=== PATIENT | female | born 1965 | race Caucasian/White ===

== ENCOUNTER 2016-12-20 19:43 | Emergency (ER) | payer MEDICAID ==
[2016-12-20 20:25] LABS: BASO % 0.4 % (0-6); EOS % 1.7 % (0-6); GRAN % 52.7 % (47-80); HEMATOCRIT 38.1 % (35.0-47.0); HEMOGLOBIN 12.5 gm/dl (11.6-16.0); LYMPH % 38.1 % (16-45); MEAN CELL VOLUME 96.5 fl (81-97); MEAN CORPUSCULAR HEMOGLOBIN 31.6 pg (27-33); MEAN CORPUSCULAR HGB CONC 32.8 g/dl (32-36); MEAN PLATELET VOLUME 10.2 fl (7.4-10.4); MONO % 7.1 % (0-9); PLATELET COUNT 261 K/uL (130-400); RED BLOOD COUNT 3.95 M/uL (3.80-5.40); RED CELL DISTRIBUTION WIDTH 11.5 % (11.5-14.5); WHITE BLOOD COUNT W/O DIFF 7.6 K/uL (4.2-12.2)
[2016-12-20 20:34] LABS: URINE APPEARANCE CLEAR; URINE BILIRUBIN NEGATIVE (NEGATIVE); URINE BLOOD MODERATE (NEGATIVE); URINE COLOR YELLOW; URINE GLUCOSE (UA) NEGATIVE (NEGATIVE); URINE KETONE NEGATIVE (NEGATIVE); URINE LEUKOCYTE ESTERASE TRACE (NEGATIVE); URINE NITRITE POSITIVE (NEGATIVE); URINE PROTEIN NEGATIVE (NEGATIVE); URINE UROBILINOGEN 0.2 E.U./dL (0.20 - 1.00)
[2016-12-20 20:38] LABS: ALB/GLOB RATIO 1.2 (1.1-1.8); ALBUMIN 4.2 gm/dL (3.5-5.0); ALKALINE PHOSPHATASE 108 U/L (38-126); ALT/SGPT 26 U/L (9-52); ANION GAP 4.8 (7-16); AST/SGOT 24 U/L (14-36); BILIRUBIN,TOTAL 0.52 mg/dL (0.2-1.3); BLOOD UREA NITROGEN 17 mg/dL (7-17); CARBON DIOXIDE 28.2 mmol/L (22-30); CREATININE 0.8 mg/dL (0.52-1.04); EST GLOMERULAR FILTRATION RATE > 60 ml/min; GLUCOSE,RANDOM 119 mg/dL (70-110); TOTAL PROTEIN 7.6 gm/dL (6.3-8.2)
[2016-12-20 20:45] LABS: URINE EPITHELIAL CELLS 0 - 2 (FEW)
--- NOTE | 2016-12-20 20:45 | Emergency Department Record ---
History of Present Illness - General Chief complaint: General Stated complaint: PAIN WHILE URINATING,HEADACHE TIRED,SORE ABDOMAN Time Seen by Provider: 12/20/16 20:12 Source: Patient Mode of Arrival: Ambulatory Limitations: No limitations - History of Present Illness Initial comments: pt c/o of not feeling well, tired, headache. she is a poor historian. she states that this is how she feels when she has a kidney infection and that she gets them often. she also has hx of PTSD MD Complaint: Dysuria -: Days(s) Consistency: Getting worse Worsens with: Urination Patient : No Associated Symptoms: Headaches, Nausea/vomiting, Weakness - Related Data Previous Rx's Medication Instructions Recorded Cephalexin [Keflex] 500 mg PO BID #14 cap 12/20/16 Allergies Allergy/AdvReac Type Severity Reaction Status Date / Time No Known Drug Allergies Allergy Verified 12/20/16 19:58 Travel Screening - Travel/Exposure Within Last 30 Days Have you traveled within the last 30 days?: No - Travel/Exposure Within Last Year Have you traveled outside the [place] in the last year?: No - Additonal Travel Details Have you been exposed to anyone with a communicable illness?: No - Travel Symptoms Symptom Screening: None Review of Systems Reviewed: No additional complaints except as noted below Constitutional: Reports: As per HPI. Denies: Chills, Fever, Malaise, Night sweats, Weakness, Weight change Eyes: Reports: As per HPI. Denies: Eye discharge, Eye pain, Photophobia, Vision change ENT: Reports: As per HPI. Denies: Congestion, Dental pain, Ear pain, Epistaxis , Hearing loss, Throat pain Respiratory: Reports: As per HPI. Denies: Cough, Dyspnea, Hemoptysis, Stridor, Wheezes Cardiovascular: Reports: As per HPI. Denies: Arrhythmia, Chest pain, Dyspnea on exertion, Edema, Murmurs, Orthopnea, Palpitations, Paroxysmal nocturnal dyspnea, Rheumatic Fever, Syncope Endocrine: Reports: As per HPI. Denies: Fatigue, Heat or cold intolerance, Polydipsia, Polyuria Gastrointestinal: Reports: As per HPI. Denies: Abdominal pain, Constipation, Diarrhea, Hematemesis, Hematochezia, Melena, Nausea, Vomiting Genitourinary: Reports: As per HPI. Denies: Abnormal menses, Discharge, Dyspareunia, Dysuria, Frequency, Hematuria, Incontinence, Retention, Urgency Musculoskeletal: Reports: As per HPI. Denies: Arthralgia, Back pain, Gout, Joint swelling, Myalgia, Neck pain Skin: Reports: As per HPI. Denies: Bruising, Change in color, Change in hair/ nails, Lesions, Pruritus, Rash Neurological: Reports: As per HPI. Denies: Abnormal gait, Confusion, Headache, Numbness, Paresthesias, Seizure, Tingling, Tremors, Vertigo, Weakness Psychiatric: Reports: As per HPI. Denies: Anxiety, Auditory hallucinations, Depression, Homicidal thoughts, Suicidal thoughts, Visual hallucinations Hematological/Lymphatic: Reports: As per HPI. Denies: Anemia, Blood Clots, Easy bleeding, Easy bruising, Swollen glands Past Medical History - SOCIAL HISTORY Smoking Status: Former smoker Alcohol Use: Rare Drug Use: Heavy Drug Use Detail:: Marijuana - RESPIRATORY Hx Respiratory Disorders: No - CARDIOVASCULAR Hx Cardio Disorders: No - NEURO Hx Neuro Disorders: No - GI Hx GI Disorders: No - Hx Genitourinary Disorders: Yes Hx UTI: Yes - ENDOCRINE Hx Endocrine Disorders: No - MUSCULOSKELETAL Hx Musculoskeletal Disorders: No - PSYCH Hx Psych Problems: Yes Hx Depression: Yes (PTSD) - HEMATOLOGY/ONCOLOGY Hx Hematology/Oncology Disorders: No Family Medical History Any Significant Family History?: Yes Family Hx Comment (NOT TO BE USED IN PLACE OF ITEMS BELOW): Prion's disease Hx Cancer: Mother Physical Exam - General General Appearance: Alert, Oriented x3, Cooperative, Mild distress - Head Head exam: Normal inspection - Eye Eye exam: Normal appearance, PERRL, EOMI Pupils: Normal accommodation - ENT ENT exam: Normal exam, Mucous membranes moist, Normal external ear exam, Normal orophraynx Ear exam: Normal external inspection. negative: External canal tenderness Nasal Exam: Normal inspection. negative: Discharge, Sinus tenderness Mouth exam: Normal external inspection, Tongue normal Teeth exam: Normal inspection. negative: Dental caries Throat exam: Normal inspection. negative: Tonsillar erythema, Tonsillar exudate - Neck Neck exam: Normal inspection, Full ROM. negative: Tenderness - Respiratory Respiratory exam: Normal lung sounds bilaterally. negative: Respiratory distress - Cardiovascular Cardiovascular Exam: Regular rate, Normal rhythm, Normal heart sounds - GI/Abdominal GI/Abdominal exam: Soft, Normal bowel sounds. negative: Tenderness - Rectal Rectal exam: Deferred - exam: Deferred - Extremities Extremities exam: Normal inspection, Full ROM, Normal capillary refill. negative: Tenderness - Back Back exam: Reports: Normal inspection, Full ROM. Denies: Muscle spasm, Rash noted, Tenderness - Neurological Neurological exam: Alert, CN II-XII intact, Normal gait, Oriented X3 - Psychiatric Psychiatric exam: Normal affect, Normal mood - Skin Skin exam: Dry, Intact, Normal color, Warm Course Vital Signs 12/20/16 19:50 Temperature 97.9 F Pulse Rate 73 Respiratory 20 Rate Blood Pressure 127/90 Pulse Ox 98 Medical Decision Making - Data Complexity MDM Data: Labs Ordered and/or Reviewed - Lab Data Result diagrams: 12/20/16 19:57 12/20/16 19:57 Disposition Disposition: Discharge Clinical Impression: UTI (urinary tract infection) Qualifiers: Urinary tract infection type: acute cystitis Hematuria presence: with hematuria Qualified Code(s): N30.01 - Acute cystitis with hematuria Disposition: Home, Self-Care Condition: (1) Good Instructions: Urinary Tract Infection in Women (ED) Additional Instructions: follow up with family doctor. return sooner if worse. have blood in urine evaluated further Prescriptions: Cephalexin [Keflex] 500 mg PO BID #14 cap Forms: Patient Portal Access
[2016-12-20 20:46] LABS: URINE AMORPHOUS SEDIMENT 4+; URINE BACTERIA 4+
[2016-12-20] MEDS ORDERED: TMP/SMZ 160MG/800MG TAB PO ONE (21:00)
[2016-12-20 21:02] LABS: ERYTHROCYTE SEDIMENTATION RATE 23 mm/hr (0-30)
[2016-12-20] MEDS ORDERED: CEPHALEXIN 500 MG CAPSULE PO STA (21:03)
== END 2016-12-20 21:13 | disposition home or self-care (01) ==
LOC: ER 19:43
DX: N30.01 Acute cystitis with hematuria (principal); R51 Headache; R11.2 Nausea with vomiting, unspecified; R30.0 Dysuria
CPT/HCPCS: 80053; 81001; 85025; 85651; 99283

== ENCOUNTER 2017-05-07 10:16 | Day surgery (SDC) | payer MEDICAID ==
[2017-05-07] MEDS ORDERED: MIDAZOLAM HCL 2MG/2ML VIAL IV ONE (14:00)
[2017-05-07] MEDS ORDERED: PROPOFOL 10 MG/ML VIAL IV ONE (14:00)
[2017-05-07] MEDS ORDERED: LIDOCAINE 2% MDV (20MG/ML) 20ML VIAL IV ONE (14:00)
--- NOTE | 2017-05-08 12:50 | Operative Note ---
DATE OF SURGERY: 05/07/2017 OPERATION: COLONOSCOPY with cold and hot snare polypectomies. PREOPERATIVE DIAGNOSIS: Screening, initial. POSTOPERATIVE DIAGNOSIS: Colon polyp. ESTIMATED BLOOD LOSS: Minimal. COMPLICATIONS: None apparent. PREPARATION QUALITY: Good. PROCEDURE: After informed consent was obtained from the patient, she was placed in the left lateral decubitus position in the endoscopy suite, sedated and monitored by the department of anesthesia. Digital rectal exam was unremarkable. A well-lubricated [id number] colonoscope was inserted into the rectum and advanced to the rectosigmoid colon where there was a 5 mm polyp which was removed with a cold snare. Minimal bleeding was noted at the site. The endoscope was then advanced into the descending colon where there was a 1 cm sessile polyp removed with a polypectomy snare, ERBE Endocut current. The polyp was retrieved. There was no bleeding at the site. The endoscope was then advanced to the cecum. Preparation quality was good. The ileocecal valve and appendiceal orifice were unremarkable. In the ascending colon, there was a 9 mm sessile polyp removed in piecemeal fashion with a polypectomy snare and ERBE Endocut current. No bleeding was noted at the site. The remainder of the ascending colon, transverse colon, descending colon, sigmoid colon, and rectum were unremarkable. J-turn views of the anorectum were unrevealing. The endoscope was straightened, the rectal ampulla deflated, and the endoscope was removed. RECOMMENDATIONS: The patient should follow a soft, low-fiber diet for the next week. She will require repeat exam in 3-5 years, most likely 3 years pending tissue histology. As always, thank you for allowing me to participate in the healthcare of your patients. CC: Dr. Dejon HARDY
== END 2017-05-07 12:22 | disposition home or self-care (01) ==
LOC: HOP 10:16
PROVIDERS: ATTEND Internal Medicine Gastroenterology
DX: Z12.11 Encounter for screening for malignant neoplasm of colon (principal); D12.4 Benign neoplasm of descending colon; D12.3 Benign neoplasm of transverse colon

== ENCOUNTER 2017-06-01 21:06 | Emergency (ER) | payer MEDICAID ==
--- NOTE | 2017-06-01 21:30 | Emergency Department Record ---
History of Present Illness - General Chief Complaint: Ankle/Foot Injury Stated Complaint: R FOOT INJURY Time Seen by Provider: 06/01/17 21:17 Source: Patient Mode of Arrival: Ambulatory Limitations: No limitations - History of Present Illness Initial Comments: The patient is here due to R foot pain. She was out walking her dog in heels and tripped and inverted her R foot. Now she has pain to the outside of the foot. She is also having a lot of pain with weight bearing. She denies any ankle or knee pain. MD Complaint: Foot injury Onset/Timin -: Hour(s) Type of Injury: Eversion Place: Street/outdoors Severity: Severe Severity scale (1-10): 10 Worsens With: Palpation, Weight bearing Associated Symptoms: Snap/pop sensation, Swelling, Able to partially bear weight Treatments Prior to Arrival: Cold therapy, NSAIDS, Other - Related Data Home Medications Medication Instructions Recorded Confirmed Last Taken Medical Marijuana 06/01/17 06/01/17 17:45 Allergies Allergy/AdvReac Type Severity Reaction Status Date / Time No Known Drug Allergies Allergy Verified 12/20/16 19:58 Travel Screening - Travel/Exposure Within Last 30 Days Have you traveled within the last 30 days?: No Review of Systems Constitutional: Denies: Chills, Fever Past Medical History - SOCIAL HISTORY Smoking Status: Former smoker Alcohol Use: None Drug Use: Heavy Drug Use Detail:: Marijuana - RESPIRATORY Hx Respiratory Disorders: No - CARDIOVASCULAR Hx Cardio Disorders: No - NEURO Hx Neuro Disorders: No - GI Hx GI Disorders: No - Hx Genitourinary Disorders: Yes Hx UTI: Yes - ENDOCRINE Hx Endocrine Disorders: No - MUSCULOSKELETAL Hx Musculoskeletal Disorders: No - PSYCH Hx Psych Problems: Yes Hx Depression: Yes (PTSD) - HEMATOLOGY/ONCOLOGY Hx Hematology/Oncology Disorders: No Family Medical History Any Significant Family History?: Yes Family Hx Comment (NOT TO BE USED IN PLACE OF ITEMS BELOW): Prion's disease Hx Cancer: Mother Physical Exam - General General Appearance: Alert, Cooperative, No acute distress - Head Head exam: Atraumatic, Normocephalic - Eye Eye exam: Normal appearance - Extremities Extremities exam: Normal capillary refill, Tenderness (There is tenderness over the bruised area.), Other (There is no ankle or achilles tenderness.). negative : Normal inspection (There is bruising to the dorsal lateral proximal foot with tenderness.), Calf tenderness, Full ROM, Joint swelling Image of Feet: 1 - Area of pain and tenderness. Course Vital Signs 06/01/17 21:13 Temperature 98.1 F Pulse Rate [ 65 Pulse Ox Probe] Respiratory 18 Rate Blood Pressure 118/85 [Left Arm] Pulse Ox 97 - Reevaluation(s) Reevaluation #1: The patient is doing OK at this time and does not want crutches. She is taking Advil at home and does not want any other medicine. I explained to her that it appears she has a sprain of the foot and we will place her in an mark wrap and hard soled shoe for a week. She is to see her PCP if not better in 4-5 days. 06/01/17 21:46 Medical Decision Making - Data Complexity MDM Data: X-Ray Ordered and/or Reviewed (R foot: Neg.) Disposition Disposition: Discharge Clinical Impression: Sprain of foot, right Qualifiers: Encounter type: initial encounter Qualified Code(s): S93.601A - Unspecified sprain of right foot, initial encounter Disposition: Home, Self-Care Condition: (2) Stable Instructions: Foot Sprain (ED) Additional Instructions: Continue your home pain medicine and use the mark wrap and hard soled shoe for 5 days. Please see your PCP if not better in 5-7 days. Please ice and elevate the foot for 2 days. Return to the ER for any new issues or worsening pain. Forms: Patient Portal Access Time of Disposition: 21:48 Quality - Quality Measures Quality Measures: N/A - Blood Pressure Screening View Details: Yes Does Patient Have Any of the Following: No Blood Pressure Classification: Normal BP Reading Systolic Measurement: 110 Diastolic Measurement: 63 Screening for High Blood Pressure: < Normal BP, F/U Not Required > [[id number]]
--- NOTE | 2017-06-02 11:08 | RADIOLOGY REPORT ---
EXAM: RIGHT FOOT HISTORY: INJURY. TECHNIQUE: Three views of the right foot were performed. FINDINGS: No evidence of fracture or dislocation. Small calcaneal spur. Mild soft tissue swelling. IMPRESSION: 1. MILD SOFT TISSUE SWELLING. NO EVIDENCE OF FRACTURE. 2. SMALL CALCANEAL SPUR. JOB NUMBER: [id number] MTDD
== END 2017-06-01 22:14 | disposition home or self-care (01) ==
LOC: ER 21:06
DX: S93.601A Unspecified sprain of right foot, initial encounter (principal); W01.0XXA Fall on same level from slipping, tripping and stumbling without subsequent striking against object, initial encounter; Y93.K1 Activity, walking an animal; Y92.410 Unspecified street and highway as the place of occurrence of the external cause
CPT/HCPCS: 99283